=== PATIENT | female | born 1935 | race Caucasian/White ===

== ENCOUNTER → 2018-07-09 | Outpatient (CLI) | payer MEDICARE ==
[~2018-07-09] MED LIST: ALBUTEROL0.09 MG/A2 IH; B12,B-12,B 12500 MC1 PO; BAYER ASPIRIN R81 MG PO; BIOTIN1000 MCG PO; BONIVA150 MG PO; CALCIUM500 MG PO; CHOLESTEROL; CIPRO500 MG PO; COZAAR25 MG PO; COZAAR50 MG PO; FAMILY PHARMAC0.4 MG PO; LEVAQUIN750 MG PO; LIPITOR20 MG PO; LOPRESSOR25 MG PO; PLAVIX75 MG PO; PROTONIX40 MG PO; VESICARE10 MG PO; VITAMIN D31000 IU PO
[2018-07-09 15:39] LABS: BUN 32 mg/dl (7-24); CHLORIDE 100 mmol/L (98-107); CHOLESTEROL 109 mg/dL (<200); CREATININE 0.95 mg/dL (0.55-1.02); HDL CHOLESTEROL 51 mg/dl (40-60); LDL CHOLESTEROL 45 mg/dL (9-159); POTASSIUM 3.7 mmol/L (3.5-5.1); SODIUM 136 mmol/L (136-145); TRIGLYCERIDES 65 mg/dl (<150); VLDL CHOLESTEROL 13 mg/dL (6-40)
== END | disposition home or self-care (01) ==
LOC: LAB 14:39
PROVIDERS: Internal Medicine
DX: I10 Essential (primary) hypertension (principal); E78.5 Hyperlipidemia, unspecified; E87.1 Hypo-osmolality and hyponatremia; R53.83 Other fatigue

== ENCOUNTER → 2018-11-07 | Day surgery (SDC) | payer MEDICARE ==
[~2018-11-07] VITALS: Ht 162.5 cm; Wt 77.1 kg
[~2018-11-07] MED LIST changes: +AMLODIPINE BESYL5 MG PO; +ASPIRIN CHEWABL81 MG PO; +CHLORTHALIDONE25 MG PO; +COZAAR100 MG PO; -COZAAR25 MG PO; +COZAAR50 M1 PO; +GOOD NEIGHBOR P20 MG PO; +HYDR12.5C PO; +K-TAB ER8 MEQ PO; +OXYBUTYNIN CHLOR5 MG PO; +SENNA LAX8.6 M1 PO; +VITAMIN K100 MC1 PO
--- NOTE | ~2018-11-07 | O ---
[place], [place] OPERATIVE NOTE [id number] UNIT #: [id number] ROOM: DOCTOR: BORIS HI MD BIRTHDATE: [birth year] DOS: 11/07/2018 PREOPERATIVE DIAGNOSIS: Cataract, left eye. POSTOPERATIVE DIAGNOSIS: Cataract, left eye. OPERATION: Extracapsular cataract extraction by phacoemulsification with posterior chamber intraocular lens implantation, left eye. ANESTHESIA: Monitored standby. OPERATIVE FINDINGS AND PROCEDURE: 2% Xylocaine topical anesthetic gel was applied to the eye in the preop area. The patient was taken to the operating room and prepped and draped in the standard fashion for sterile intraocular surgery. A time out procedure was performed verifying correct patient, correct site and corrects lens with Isra Hi M.D. The operating microscope was swung into position and the lid speculum was inserted. Using a Beverly paracentesis blade, a paracentesis was made through clear cornea. Viscoelastic was used to fill the anterior chamber. Using a metal keratome a 2.4 mm self-sealing clear corneal cataract incision was made temporally at the limbus. Using a pre-bent 25 gauge cystotome needle, a standard continuous curvilinear capsulorrhexis was performed. The anterior capsule was removed with forceps. The lens nucleus was hydrodissected and phacoemulsified in the posterior chamber. Cortical material was removed with the irrigation aspiration hand piece and the posterior capsule was then polished with a curet under irrigation. The posterior chamber and capsular bag were filled with viscoelastic. A posterior chamber intraocular lens manufactured by: [employer], Model #[id number], and 21.0 diopters in strength were then inserted into the posterior chamber and within the capsular bag using the lens cartridge and injector system. Viscoelastic was removed using the irrigation aspiration handpiece. The anterior chamber was filled with balanced salt solution through the paracentesis. Both the paracentesis site and cataract incisions were hydrated with BSS and verified to be water-tight and self-sealing. Cefuroxime 1 mg/0.1 mL was injected into the anterior chamber through the paracentesis site. The incision checked to be water-tight using a Weck-Tara sponge. The integrity of the cataract wound and ocular tension were checked. Lid speculum and drapes were removed. The patient was transferred from the operating room to the recovery room in satisfactory condition. [place], [place] OPERATIVE NOTE NAME: ADRIANNE ROMAN UNIT #: [id number] ROOM: DOCTOR: BORIS HI MD BIRTHDATE: [birth year] BORIS HI MD CM:OPRECORD:OPERATIVE NOTE [id number] BORIS HI MD 11/07/18 1030 interface
[2018-11-07 08:49] VITALS: BP 176/61
[2018-11-07 09:30] VITALS: BP 152/53
[2018-11-07 09:45] VITALS: BP 141/49
[2018-11-07 10:00] VITALS: BP 150/51
== END | disposition home or self-care (01) ==
LOC: SDC 11-01 12:30
DX: H25.812 Combined forms of age-related cataract, left eye (principal); I25.10 Atherosclerotic heart disease of native coronary artery without angina pectoris; I10 Essential (primary) hypertension; E78.5 Hyperlipidemia, unspecified; Z88.1 Allergy status to other antibiotic agents; Z88.8 Allergy status to other drugs, medicaments and biological substances; Z91.048 Other nonmedicinal substance allergy status; Z98.890 Other specified postprocedural states; Z79.82 Long term (current) use of aspirin; Z79.899 Other long term (current) drug therapy; Z95.1 Presence of aortocoronary bypass graft

== ENCOUNTER 2019-03-04 19:17 | Inpatient (IN) | payer MEDICARE ==
[2019-03-04] VITALS (8 sets, daily range): BP systolic 180–222; BP diastolic 54–84
[~2019-03-04] VITALS: Ht 162.6 cm; Wt 78.3 kg
--- NOTE | ~2019-03-04 | EKG ---
[place], [place] ELECTROCARDIOGRAM REPORT NAME: ADRIANNE ROMAN UNIT #: [id number] ROOM: 407 DOCTOR: YASMANY DRAFT REPORT BIRTHDATE: [birth year] [facility] Test Date: 2019-03-05 Test Time: 01:40:03 Pat Name: ADRIANNE ROMAN Department: Room: 407 Gender: F Equipment Service Lead: : 1935 Requested By: AUTUMN ROTHMAN Order Number: [id number] Reading MD: Olivia Kay MD Measurements Intervals [place] Rate: 71 P: 72 MT: 212 QRS: 8 QRSD: 72 T: 39 QT: 418 QTc: 455 Interpretive Statements Sinus rhythm Borderline prolonged MT interval Electronically Signed On 03-10-2019 7:42:02 PDT by Olivia Kay MD CM:EKGRPT:ELECTROCARDIOGRAM REPORT [id number] AUTUMN BUCHANAN DRAFT REPORT AUTUMN ROTHMAN DO
--- NOTE | ~2019-03-04 | EKG ---
[place], [place] ELECTROCARDIOGRAM REPORT NAME: ADRIANNE ROMAN UNIT #: [id number] ROOM: 407 DOCTOR: YASMANY DRAFT REPORT BIRTHDATE: [birth year] [facility] Test Date: 2019-03-04 Test Time: 19:22:33 Pat Name: ADRIANNE ROMAN Department: Room: 407 Gender: F Chef Saucier: : 1935 Requested By: AUTUMN ROTHMAN Order Number: [id number] Reading MD: Olivia Kay MD Measurements Intervals [place] Rate: 87 P: 74 IN: 206 QRS: 40 QRSD: 73 T: 53 QT: 352 QTc: 424 Interpretive Statements Sinus rhythm Probable left atrial enlargement Baseline wander in lead(s) I,II,aVR,V1 Electronically Signed On 03-07-2019 8:01:30 PDT by Olivia Kay MD CM:EKGRPT:ELECTROCARDIOGRAM REPORT 21 0801 AUTUMN BUCHANAN DRAFT REPORT AUTUMN ROTHMAN DO
--- NOTE | ~2019-03-04 | ST ---
[place], [place] EXERCISE STRESS TEST REPORT NAME: ADRIANNE ROMAN [facility] #: [id number] UNIT #: [id number] ROOM: 407 DOCTOR: LONNIE MITCHELL MD BIRTHDATE: [birth year] DOS: 03/05/2019 LEXISCAN STRESS EKG REPORT REFERRING PHYSICIAN: Dr. Kramer. INDICATION: Chest pain, shortness of breath. The patient underwent standard protocol Lexiscan stress EKG. Baseline EKG is normal sinus, nonspecific ST-T wave changes. Heart rate of 65, blood pressure of 150/64. The patient's peak heart rate was 87 with a blood pressure of 150/60. The patient had no chest pain, no shortness of breath, no ischemic changes. SUMMARY OF FINDINGS: Unremarkable Lexiscan stress EKG. Please see separate report for perfusion scan imaging results. LONNIE MITCHELL MD CM:STRESS:EXERCISE STRESS TEST REPORT [id number] LONNIE MITCHELL MD
--- NOTE | ~2019-03-04 | EKG ---
[place], [place] ELECTROCARDIOGRAM REPORT NAME: ADRIANNE ROMAN UNIT #: [id number] ROOM: 407 DOCTOR: YASMANY DRAFT REPORT BIRTHDATE: [birth year] [facility] Test Date: 2019-03-04 Test Time: 23:15:01 Pat Name: ADRIANNE ROMAN Department: Room: 407 Gender: F Unitizer: : 1935 Requested By: AUTUMN ROTHMAN Order Number: [id number] Reading MD: Olivia Kay MD Measurements Intervals [place] Rate: 68 P: 77 IA: 198 QRS: 22 QRSD: 74 T: 30 QT: 413 QTc: 440 Interpretive Statements Sinus rhythm Baseline wander in lead(s) III,aVL,aVF Electronically Signed On 03-07-2019 8:01:43 PDT by Olivia Kay MD CM:EKGRPT:ELECTROCARDIOGRAM REPORT [id number] AUTUMN BUCHANAN DRAFT REPORT AUTUMN ROTHMAN DO
[~2019-03-04 19:17] MED LIST changes: -AMLODIPINE BESYL5 MG PO; -ASPIRIN CHEWABL81 MG PO; -CHLORTHALIDONE25 MG PO; -COZAAR50 M1 PO; -GOOD NEIGHBOR P20 MG PO; -HYDR12.5C PO; -K-TAB ER8 MEQ PO; -SENNA LAX8.6 M1 PO
[2019-03-04 19:34] LABS: BASO # 0.1 10*3/uL (0.0-0.1); BASO % 0.6 % (0.0-1.0); EOS # 0.2 10*3/uL (0.0-0.4); EOS % 2.4 % (1.0-4.0); HEMATOCRIT 38.7 % (37.0-47.0); HEMOGLOBIN 12.9 g/dl (12.0-16.0); LYMPH # 1.7 10*3/uL (1.3-4.4); LYMPH % 21.1 % (27.0-41.0); MEAN CELL VOLUME 89.6 fl (81.0-99.0); MEAN CORPUSCULAR HGB 29.9 pg (27.0-31.0); MEAN CORPUSCULAR HGB CONC 33.3 g/dl (33.0-37.0); MEAN PLATELET VOLUME 11.6 fl (9.6-12.3); MONO # 0.9 10*3/uL (0.1-1.0); MONO % 11.1 % (3.0-9.0); NEUT # 5.1 10*3/uL (2.3-7.9); NEUT % 64.5 % (47.0-73.0); PLATELET COUNT AUTOMATED 211 10*3/uL (130-400); RED BLOOD COUNT 4.32 10*6/uL (4.10-5.10); RED CELL DISTRI WIDTH 12.5 % (0-14.5); WHITE BLOOD COUNT 7.9 10*3/uL (4.8-10.8)
[2019-03-04 19:50] LABS: ALBUMIN 3.7 gm/dl (3.1-4.5); ALKALINE PHOSPHATASE 86 U/L (45-117); BUN 24 mg/dl (7-24); CHLORIDE 105 mmol/L (98-107); CREATININE 1.28 mg/dL (0.55-1.02); SGOT/AST 54 IU/L (3-35); SGPT/ALT 20 U/L (12-78); SODIUM 135 mmol/L (136-145); TOTAL PROTEIN 7.6 gm/dL (6.4-8.2)
[2019-03-04 19:51] LABS: TROPONIN I < 0.015 ng/ml (<0.045)
[2019-03-04 20:47] LABS: ACT PARTIAL THROMBO TIME 26.5 SECONDS (20.0-32.1)
[2019-03-04] MEDS ORDERED: COZAAR50 M1 PO (23:33)
[2019-03-04] MEDS ORDERED: CHLORTHALIDONE25 MG PO (23:38)
[2019-03-04] MEDS ORDERED: GOOD NEIGHBOR P20 MG PO (23:39)
[2019-03-04] MEDS ORDERED: LIPITOR20 MG PO (23:40)
[2019-03-04] MEDS ORDERED: ASPIRIN CHEWABL81 MG PO (23:41)
[2019-03-04] MEDS ORDERED: SENNA LAX8.6 M1 PO (23:42)
[2019-03-05] VITALS: BP 190/56
[2019-03-05 01:20] VITALS: BP 169/52
[2019-03-05 06:41] LABS: BASO % 0.6 % (0.0-1.0); EOS # 0.2 10*3/uL (0.0-0.4); HEMATOCRIT 36.4 % (37.0-47.0); HEMOGLOBIN 11.9 g/dl (12.0-16.0); LYMPH # 1.5 10*3/uL (1.3-4.4); LYMPH % 21.8 % (27.0-41.0); MEAN CELL VOLUME 90.5 fl (81.0-99.0); MEAN CORPUSCULAR HGB 29.6 pg (27.0-31.0); MEAN CORPUSCULAR HGB CONC 32.7 g/dl (33.0-37.0); MEAN PLATELET VOLUME 11.4 fl (9.6-12.3); MONO # 0.9 10*3/uL (0.1-1.0); MONO % 12.3 % (3.0-9.0); NEUT # 4.4 10*3/uL (2.3-7.9); NEUT % 61.9 % (47.0-73.0); PLATELET COUNT AUTOMATED 164 10*3/uL (130-400); RED BLOOD COUNT 4.02 10*6/uL (4.10-5.10); RED CELL DISTRI WIDTH 12.6 % (0-14.5); WHITE BLOOD COUNT 7.1 10*3/uL (4.8-10.8)
[2019-03-05 07:19] LABS: ALBUMIN 3.6 gm/dl (3.1-4.5); CREATININE 1.1 mg/dL (0.55-1.02); PHOSPHOROUS 3.9 mg/dL (2.5-4.9)
[2019-03-05 07:26] LABS: FREE T4 1.24 ng/dl (0.76-1.46); THYROID STIM HORMONE (HS) 2.87 uIU/ml (0.358-4.75); TOTAL PROTEIN 6.7 gm/dL (6.4-8.2)
[2019-03-05 07:41] LABS: POTASSIUM 3.8 mmol/L (3.5-5.1)
[2019-03-05 08:00] VITALS: BP 176/52
[2019-03-05 15:14] VITALS: BP 189/51
[2019-03-05 15:48] VITALS: BP 168/58
[2019-03-05 20:00] VITALS: BP 167/55
[2019-03-06] VITALS: BP 160/66; BP 172/64
[2019-03-06 08:00] VITALS: BP 162/70
[2019-03-06 12:00] VITALS: BP 139/42
[2019-03-06] MEDS ORDERED: K-TAB ER8 MEQ PO (13:00)
[2019-03-06] MEDS ORDERED: HYDR12.5C PO (13:00)
[2019-03-06] MEDS ORDERED: AMLODIPINE BESYL5 MG PO (13:00)
== END 2019-03-06 14:00 | disposition home or self-care (01) | DRG 193 ==
LOC: ED 19:17 → 4E 21:53
PROVIDERS: Internal Medicine; Student in an Organized Health Care Education/Training Program; ADMIT Internal Medicine
PROC: 3E073KZ Introduction of Other Diagnostic Substance into Coronary Artery, Percutaneous Approach (ICD-10-PCS; principal; 2019-03-05)
PROC: 4A02XM4 Measurement of Cardiac Total Activity, External Approach (ICD-10-PCS; principal; 2019-03-05)
DX: R09.1 Pleurisy (principal); N17.0 Acute kidney failure with tubular necrosis; I16.1 Hypertensive emergency; E87.1 Hypo-osmolality and hyponatremia; F41.9 Anxiety disorder, unspecified; K21.9 Gastro-esophageal reflux disease without esophagitis; I25.10 Atherosclerotic heart disease of native coronary artery without angina pectoris; E78.5 Hyperlipidemia, unspecified; I10 Essential (primary) hypertension; R74.0 Nonspecific elevation of levels of transaminase and lactic acid dehydrogenase [LDH]; Z95.1 Presence of aortocoronary bypass graft; Z85.3 Personal history of malignant neoplasm of breast; Z92.3 Personal history of irradiation; Z80.8 Family history of malignant neoplasm of other organs or systems; Z88.8 Allergy status to other drugs, medicaments and biological substances; Z79.82 Long term (current) use of aspirin; Z79.899 Other long term (current) drug therapy; Z98.42 Cataract extraction status, left eye

== ENCOUNTER → 2019-04-02 | Outpatient (CLI) | payer MEDICARE ==
[~2019-04-02] MED LIST changes: +AMLODIPINE BESYL5 MG PO; +ASPIRIN CHEWABL81 MG PO; +CHLORTHALIDONE25 MG PO; +COZAAR50 M1 PO; +GOOD NEIGHBOR P20 MG PO; +HYDR12.5C PO; +K-TAB ER8 MEQ PO; +SENNA LAX8.6 M1 PO
[2019-04-02 10:33] LABS: HEMOGLOBIN 12.8 g/dl (12.0-16.0); MEAN CELL VOLUME 87.4 fl (81.0-99.0); MEAN CORPUSCULAR HGB 29.4 pg (27.0-31.0); MEAN CORPUSCULAR HGB CONC 33.7 g/dl (33.0-37.0); RED BLOOD COUNT 4.35 10*6/uL (4.10-5.10); RED CELL DISTRI WIDTH 12.5 % (0-14.5)
[2019-04-02 11:01] LABS: ALBUMIN 3.7 gm/dl (3.1-4.5); ALKALINE PHOSPHATASE 74 U/L (45-117); BUN 21 mg/dl (7-24); CHLORIDE 102 mmol/L (98-107); CHOLESTEROL 101 mg/dL (<200); CREATININE 1.03 mg/dL (0.55-1.02); HDL CHOLESTEROL 52 mg/dl (40-60); LDL CHOLESTEROL 37 mg/dL (9-159); POTASSIUM 3.6 mmol/L (3.5-5.1); SGOT/AST 15 IU/L (3-35); SGPT/ALT 19 U/L (12-78); SODIUM 136 mmol/L (136-145); TOTAL PROTEIN 7.4 gm/dL (6.4-8.2); TRIGLYCERIDES 61 mg/dl (<150); VLDL CHOLESTEROL 12 mg/dL (6-40)
== END | disposition home or self-care (01) ==
LOC: LAB 10:00
PROVIDERS: Nurse Practitioner Family
DX: I10 Essential (primary) hypertension (principal); E78.00 Pure hypercholesterolemia, unspecified; E87.5 Hyperkalemia; E55.9 Vitamin D deficiency, unspecified

== ENCOUNTER → 2019-05-24 | Outpatient (CLI) | payer MEDICARE ==
[2019-05-24 15:59] LABS: HEMATOCRIT 37.2 % (37.0-47.0); HEMOGLOBIN 12.4 g/dl (12.0-16.0); MEAN CELL VOLUME 87.3 fl (81.0-99.0); MEAN CORPUSCULAR HGB 29.1 pg (27.0-31.0); MEAN CORPUSCULAR HGB CONC 33.3 g/dl (33.0-37.0); MEAN PLATELET VOLUME 10.2 fl (9.6-12.3); RED BLOOD COUNT 4.26 10*6/uL (4.10-5.10); RED CELL DISTRI WIDTH 12.5 % (0-14.5); WHITE BLOOD COUNT 7.4 10*3/uL (4.8-10.8)
[2019-05-24 16:24] LABS: ALBUMIN 3.9 gm/dl (3.1-4.5); ALKALINE PHOSPHATASE 74 U/L (45-117); BUN 21 mg/dl (7-24); CHLORIDE 97 mmol/L (98-107); CREATININE 1.01 mg/dL (0.55-1.02); POTASSIUM 3.8 mmol/L (3.5-5.1); SGOT/AST 21 IU/L (3-35); SGPT/ALT 28 U/L (12-78); SODIUM 131 mmol/L (136-145); TOTAL PROTEIN 7.4 gm/dL (6.4-8.2)
== END | disposition home or self-care (01) ==
LOC: LAB 15:32
PROVIDERS: Family Medicine
DX: R06.02 Shortness of breath (principal); I10 Essential (primary) hypertension; F41.1 Generalized anxiety disorder; E74.00 Glycogen storage disease, unspecified; F41.9 Anxiety disorder, unspecified; L65.9 Nonscarring hair loss, unspecified; R60.0 Localized edema

== ENCOUNTER → 2019-07-29 | Outpatient (CLI) | payer OTHER ==
[2019-07-29 11:43] LABS: HEMATOCRIT 38.1 % (37.0-47.0); HEMOGLOBIN 12.7 g/dl (12.0-16.0); MEAN CORPUSCULAR HGB 29.3 pg (27.0-31.0); MEAN CORPUSCULAR HGB CONC 33.3 g/dl (33.0-37.0); MEAN PLATELET VOLUME 10.9 fl (9.6-12.3); RED BLOOD COUNT 4.33 10*6/uL (4.10-5.10); RED CELL DISTRI WIDTH 12.8 % (0-14.5); WHITE BLOOD COUNT 7.1 10*3/uL (4.8-10.8)
[2019-07-29 12:11] LABS: ALBUMIN 4.1 gm/dl (3.1-4.5); CREATININE 1.13 mg/dL (0.55-1.02); FREE T4 1.05 ng/dl (0.76-1.46)
[2019-07-29 12:16] LABS: THYROID STIM HORMONE (HS) 1.86 uIU/ml (0.358-4.75); TOTAL PROTEIN 7.4 gm/dL (6.4-8.2)
== END | disposition home or self-care (01) ==
LOC: LAB 11:08
PROVIDERS: Family Medicine
DX: I10 Essential (primary) hypertension (principal); E78.00 Pure hypercholesterolemia, unspecified; E55.9 Vitamin D deficiency, unspecified; Z79.899 Other long term (current) drug therapy; R53.83 Other fatigue

== ENCOUNTER → 2020-03-30 | Outpatient (CLI) | payer MEDICARE ==
[2020-03-30 10:45] LABS: HEMATOCRIT 36.7 % (37.0-47.0); MEAN CELL VOLUME 87.6 fl (81.0-99.0); MEAN CORPUSCULAR HGB 28.9 pg (27.0-31.0); MEAN PLATELET VOLUME 11.1 fl (9.6-12.3); RED BLOOD COUNT 4.19 10*6/uL (4.10-5.10); WHITE BLOOD COUNT 5.7 10*3/uL (4.8-10.8)
[2020-03-30 11:14] LABS: ALBUMIN 3.8 gm/dl (3.1-4.5); CREATININE 1.17 mg/dL (0.55-1.02); POTASSIUM 3.9 mmol/L (3.5-5.1); TOTAL PROTEIN 7.3 gm/dL (6.4-8.2)
== END | disposition home or self-care (01) ==
LOC: LAB 10:10
PROVIDERS: ATTEND Family Medicine
DX: I10 Essential (primary) hypertension (principal); E55.9 Vitamin D deficiency, unspecified

== ENCOUNTER → 2020-04-10 | Outpatient (CLI) | payer MEDICARE | END | disposition home or self-care (01) | LOC: US 13:00 | PROVIDERS: ATTEND Nurse Practitioner Family | DX: I65.23 Occlusion and stenosis of bilateral carotid arteries (principal) ==

== ENCOUNTER → 2020-04-27 | Outpatient (CLI) | payer MEDICARE | END | disposition home or self-care (01) | LOC: RAD 15:34 | PROVIDERS: ATTEND Family Medicine | DX: J44.9 Chronic obstructive pulmonary disease, unspecified (principal); Z95.1 Presence of aortocoronary bypass graft ==

== ENCOUNTER → 2020-09-30 | Outpatient (CLI) | payer MEDICARE | END | disposition home or self-care (01) | LOC: RAD 10:52 | PROVIDERS: ATTEND Family Medicine | DX: J43.9 Emphysema, unspecified (principal); J98.11 Atelectasis; J98.6 Disorders of diaphragm; Z95.1 Presence of aortocoronary bypass graft ==

== ENCOUNTER → 2020-10-19 | Outpatient (CLI) | payer MEDICARE ==
[2020-10-19 08:48] LABS: BASO % 0.6 % (0.0-1.0); EOS # 0.1 10*3/uL (0.0-0.4); HEMATOCRIT 39.6 % (37.0-47.0); LYMPH # 2.2 10*3/uL (1.3-4.4); LYMPH % 34.6 % (27.0-41.0); MEAN CELL VOLUME 89.8 fl (81.0-99.0); MEAN CORPUSCULAR HGB 29.3 pg (27.0-31.0); MEAN CORPUSCULAR HGB CONC 32.6 g/dl (33.0-37.0); MEAN PLATELET VOLUME 10.9 fl (9.6-12.3); MONO # 0.9 10*3/uL (0.1-1.0); NEUT # 3.1 10*3/uL (2.3-7.9); NEUT % 48.5 % (47.0-73.0); PLATELET COUNT AUTOMATED 222 10*3/uL (130-400); RED BLOOD COUNT 4.41 10*6/uL (4.10-5.10); RED CELL DISTRI WIDTH 12.9 % (0-14.5); WHITE BLOOD COUNT 6.5 10*3/uL (4.8-10.8)
[2020-10-19 09:28] LABS: CREATININE 1.36 mg/dL (0.55-1.02); TOTAL PROTEIN 7.9 gm/dL (6.4-8.2)
== END | disposition home or self-care (01) ==
LOC: LAB 08:12
PROVIDERS: ATTEND Family Medicine
DX: E78.00 Pure hypercholesterolemia, unspecified (principal); E55.9 Vitamin D deficiency, unspecified; R53.83 Other fatigue; Z79.899 Other long term (current) drug therapy

== ENCOUNTER → 2021-02-09 | Outpatient (CLI) | payer MEDICARE ==
[~2021-02-09] MED LIST changes: +CARDIZEM CD240 M1 PO; +DOXYCYCLINE100 M3 PO; +ELIQUIS5 M1 PO; +Ipratropium Brom3 ML INH; +LASIX40 MG PO; -OXYBUTYNIN CHLOR5 MG PO; +OXYBUTYNIN5 MG PO
[2021-02-09 13:38] LABS: ALBUMIN 3.9 gm/dl (3.1-4.5); CREATININE 1.11 mg/dL (0.55-1.02); POTASSIUM 4.3 mmol/L (3.5-5.1)
[2021-02-09 13:41] LABS: TOTAL PROTEIN 7.6 gm/dL (6.4-8.2)
== END | disposition home or self-care (01) ==
LOC: LAB 12:35
PROVIDERS: ATTEND Family Medicine
DX: I10 Essential (primary) hypertension (principal); E78.00 Pure hypercholesterolemia, unspecified; N32.81 Overactive bladder

== ENCOUNTER → 2021-04-14 | Outpatient (CLI) | payer MEDICARE | END | disposition home or self-care (01) | LOC: CARD 09:28 | PROVIDERS: ATTEND Family Medicine | DX: R00.2 Palpitations (principal) ==

== ENCOUNTER → 2021-05-03 | Outpatient (CLI) | payer MEDICARE ==
[2021-05-03 15:00] LABS: ALBUMIN 3.8 gm/dl (3.1-4.5); CREATININE 1.2 mg/dL (0.55-1.02); POTASSIUM 4.6 mmol/L (3.5-5.1); TOTAL PROTEIN 7.6 gm/dL (6.4-8.2)
== END | disposition home or self-care (01) ==
LOC: LAB 14:22
PROVIDERS: ATTEND Family Medicine
DX: J98.11 Atelectasis (principal); E78.00 Pure hypercholesterolemia, unspecified

== ENCOUNTER → 2021-06-07 | Outpatient (CLI) | payer MEDICARE | END | disposition home or self-care (01) | LOC: US 06-04 15:00 | PROVIDERS: ATTEND Family Medicine | DX: I65.23 Occlusion and stenosis of bilateral carotid arteries (principal); R09.89 Other specified symptoms and signs involving the circulatory and respiratory systems ==

== ENCOUNTER → 2021-12-28 | Outpatient (CLI) | payer MEDICARE ==
[2021-12-28 09:10] LABS: HEMATOCRIT 38.3 % (37.0-47.0); MEAN CELL VOLUME 91.6 fl (81.0-99.0); MEAN CORPUSCULAR HGB 29.9 pg (27.0-31.0); MEAN CORPUSCULAR HGB CONC 32.6 g/dl (33.0-37.0); MEAN PLATELET VOLUME 11.4 fl (9.6-12.3); RED BLOOD COUNT 4.18 10*6/uL (4.10-5.10); RED CELL DISTRI WIDTH 13.1 % (0-14.5); WHITE BLOOD COUNT 6.9 10*3/uL (4.8-10.8)
[2021-12-28 09:26] LABS: CREATININE 1.1 mg/dL (0.55-1.02); POTASSIUM 4.1 mmol/L (3.5-5.1); TOTAL PROTEIN 7.4 gm/dL (6.4-8.2)
[2021-12-28 10:14] LABS: VITAMIN D, 25-HYDROXY 93.5 ng/mL (30-100)
== END | disposition home or self-care (01) ==
LOC: LAB 08:45
PROVIDERS: ATTEND Family Medicine
DX: I10 Essential (primary) hypertension (principal); E78.00 Pure hypercholesterolemia, unspecified; R53.83 Other fatigue; E55.9 Vitamin D deficiency, unspecified; N32.81 Overactive bladder

== ENCOUNTER → 2022-04-06 | Outpatient (CLI) | payer MEDICARE ==
[~2022-04-06] MED LIST changes: +CALCIUM 600 MG1 EA10 PO; +POTASSIUM CHLO20 ME4 PO
== END | disposition home or self-care (01) ==
LOC: MAMMO 08:35
PROVIDERS: ATTEND Family Medicine
DX: R92.1 Mammographic calcification found on diagnostic imaging of breast (principal); N64.9 Disorder of breast, unspecified

== ENCOUNTER → 2022-04-11 | Day surgery (SDC) | payer MEDICARE ==
[~2022-04-11] VITALS: Ht 162.5 cm; Wt 74.8 kg
[2022-04-11 07:30] VITALS: BP 181/56
[2022-04-11 09:00] VITALS: BP 144/43
[2022-04-11 09:15] VITALS: BP 156/47
[2022-04-11 09:27] VITALS: BP 158/45
== END | disposition home or self-care (01) ==
LOC: US 04-06 09:30 → SDC 04-06 09:30
PROVIDERS: ATTEND Surgery
DX: Z12.11 Encounter for screening for malignant neoplasm of colon (principal); K57.30 Diverticulosis of large intestine without perforation or abscess without bleeding; K64.8 Other hemorrhoids; I10 Essential (primary) hypertension; I25.10 Atherosclerotic heart disease of native coronary artery without angina pectoris; E78.5 Hyperlipidemia, unspecified; Z98.890 Other specified postprocedural states; Z85.3 Personal history of malignant neoplasm of breast; Z98.42 Cataract extraction status, left eye; Z98.41 Cataract extraction status, right eye; Z87.891 Personal history of nicotine dependence; Z88.1 Allergy status to other antibiotic agents; Z79.899 Other long term (current) drug therapy
CPT/HCPCS: 00812; G0121

== ENCOUNTER → 2022-04-18 | Outpatient (CLI) | payer MEDICARE | END | disposition home or self-care (01) | LOC: LAB 14:31 | PROVIDERS: ATTEND Family Medicine | DX: I10 Essential (primary) hypertension (principal) ==

== ENCOUNTER → 2022-05-12 | Outpatient (CLI) | payer MEDICARE ==
[2022-05-12 11:20] LABS: HEMATOCRIT 38.9 % (37.0-47.0); MEAN CELL VOLUME 91.1 fl (81.0-99.0); MEAN CORPUSCULAR HGB 29.7 pg (27.0-31.0); MEAN CORPUSCULAR HGB CONC 32.6 g/dl (33.0-37.0); MEAN PLATELET VOLUME 12.4 fl (9.6-12.3); RED BLOOD COUNT 4.27 10*6/uL (4.10-5.10); RED CELL DISTRI WIDTH 13.2 % (0-14.5); WHITE BLOOD COUNT 6.4 10*3/uL (4.8-10.8)
[2022-05-12 11:48] LABS: CREATININE 1.11 mg/dL (0.55-1.02); POTASSIUM 3.9 mmol/L (3.5-5.1); TOTAL PROTEIN 7.4 gm/dL (6.4-8.2)
[2022-05-12 13:00] LABS: VITAMIN D, 25-HYDROXY 80.6 ng/mL (30-100)
== END | disposition home or self-care (01) ==
LOC: LAB 10:15
PROVIDERS: ATTEND Family Medicine
DX: E78.00 Pure hypercholesterolemia, unspecified (principal); I10 Essential (primary) hypertension; E55.9 Vitamin D deficiency, unspecified; M19.90 Unspecified osteoarthritis, unspecified site; R53.83 Other fatigue

== ENCOUNTER → 2022-10-10 | Outpatient (CLI) | payer OTHER ==
[~2022-10-10] MED LIST changes: +'CLONIDINE0.1 MG PO; +CEFUROXIME AXE250 MG PO; +HYDRALAZINE HYD50 MG PO; +PREDNISONE5 MG PO; +PULMICORT RESP0.5 M1 INH; +XARE15TA PO
== END | disposition home or self-care (01) ==
LOC: RAD 15:09
PROVIDERS: ATTEND Family Medicine
DX: J98.11 Atelectasis (principal); R06.02 Shortness of breath

== ENCOUNTER → 2023-04-12 | Outpatient (CLI) | payer OTHER ==
[~2023-04-12] MED LIST changes: +ELIQUIS2.5 M1 PO; +FUROSEMIDE40 MG PO; +LIPITOR10 MG PO; +METOPROLOL SUCC25 M2 PO
== END | disposition home or self-care (01) ==
LOC: RAD 14:02
PROVIDERS: ATTEND Family Medicine
DX: J44.9 Chronic obstructive pulmonary disease, unspecified (principal); J98.4 Other disorders of lung

== ENCOUNTER 2023-08-25 04:56 | Inpatient (IN) | payer OTHER ==
[~2023-08-25] VITALS: Ht 162.6 cm; Wt 78.0 kg
[2023-08-25] VITALS (9 sets, daily range): BP systolic 140–199; BP diastolic 50–72
[~2023-08-25 04:56] MED LIST changes: +ACETAMINOPHEN325 M2 PO; +ALDACTONE25 MG PO; +ALPRAZOLAM0.25 M2 PO; +AMLODIPINE BESY10 MG PO; +AMOX-CLAV 875-1 EACH PO; +BUMETANIDE2 MG PO; +BUSPAR5 MG PO; +CLONIDINE HCL0.2 MG PO; +HYDR25T PO; +HYDROCHLOROTHIA25 M1 PO; +LABETALOL HCL300 MG PO; +LOSARTAN POTAS100 M1 PO; +LOSARTAN POTASS50 M1 PO; +MACRODANTIN100 M1 PO; +MAGIC MOUTHWASH PO; +MINIPRESS1 M1 PO; +NORMODYNE,TRAN100 MG PO; +NORMODYNE,TRAN200 MG PO; +PANTOPRAZOLE SO40 MG PO; +PHARMASSURE FO0.4 MG PO; +SENNA8.6 MG PO; +TOPROL XL25 MG PO; +VESICARE5 MG PO
[2023-08-25 05:34] LABS: BILIRUBIN Negative (Negative); BLOOD Negative (Negative); CLARITY Clear (Clear); COLOR Yellow (Yellow); GLUCOSE Negative (Negative); KETONE Negative (Negative); LEUKO ESTERASE Negative (Negative); NITRITE Negative (Negative); PH 5.5 (4.5-8.0)
[2023-08-25 05:43] LABS: POTASSIUM 4.7 mmol/L (3.4-5.1)
[2023-08-25 05:45] LABS: BACTERIA 1+
[2023-08-25 05:53] LABS: BASO % 0.2 % (0.0-1.0); LYMPH # 0.7 10*3/uL (1.3-4.4)
[2023-08-25 06:04] LABS: EOS % 0.7 % (1.0-4.0); HEMATOCRIT 24.3 % (37.0-47.0); MEAN CELL VOLUME 93.1 fl (81.0-99.0); MEAN CORPUSCULAR HGB 28.7 pg (27.0-31.0); MEAN CORPUSCULAR HGB CONC 30.9 g/dl (33.0-37.0); MEAN PLATELET VOLUME 12.4 fl (9.6-12.3); MONO # 0.7 10*3/uL (0.1-1.0); MONO % 16.4 % (3.0-9.0); NEUT # 2.8 10*3/uL (2.3-7.9); NEUT % 66.2 % (47.0-73.0); PLATELET COUNT AUTOMATED 118 10*3/uL (130-400); RED BLOOD COUNT 2.61 10*6/uL (4.10-5.10); RED CELL DISTRI WIDTH 14.4 % (0-14.5); WHITE BLOOD COUNT 4.3 10*3/uL (4.8-10.8)
[2023-08-25] MEDS ORDERED: FUROSEMIDE 40 MG/4 ML VIAL IV ONE (06:05)
[2023-08-25] MEDS ORDERED: Ceftriaxone Sodium 1 GM/10 ML SYR IV ONE (06:05)
[2023-08-25] MEDS ORDERED: Doxycycline Hyclate 100 MG in SODIUM CHLORIDE 0.9% 250 ML IV ONE (06:05)
[2023-08-25] MEDS ORDERED: HYDROXYZINE HCL25 MG PO (06:13)
[2023-08-25] MEDS ORDERED: SACCHAROMYCES250 MG PO (06:14)
[2023-08-25] MEDS ORDERED: FLAVOXATE HCL100 MG PO (06:15)
[2023-08-25] MEDS ORDERED: AMOXICILLIN875 MG PO (06:15)
[2023-08-25] MEDS ORDERED: MIRTAZAPINE15 M1 PO (06:16)
[2023-08-25] MEDS ORDERED: SYMB160 INH (06:16)
[2023-08-25] MEDS ORDERED: MILK OF MA400 MG/53 PO (06:17)
[2023-08-25] MEDS ORDERED: DOCUSATE SOD100 MG PO (06:18)
[2023-08-25] MEDS ORDERED: hydrALAZINE hydrochloride 50 MG TAB PO SCH ×2 (10:00→22:00)
[2023-08-25] MEDS ORDERED: Labetalol Hydrochloride 200 MG TAB PO SCH ×2 (10:00→14:00)
[2023-08-25] MEDS ORDERED: hydrOXYzine pamoate 25 MG CAP PO ONE (11:05)
[2023-08-25] MEDS ORDERED: hydrOXYzine pamoate 25 MG CAP PO PRN (11:45)
[2023-08-25] MEDS ORDERED: hydrOXYzine pamoate 25 MG CAP PO SCH (12:00)
[2023-08-25] MEDS ORDERED: Albuterol Sulfate 2.5 MG/3 ML VIAL NEB SCH (12:05)
[2023-08-25] MEDS ORDERED: BUDESONIDE 0.5 MG AMP NEB SCH (12:05)
[2023-08-25] MEDS ORDERED: methylPREDNISolone sod succ 40 MG VIAL IV SCH (14:00)
[2023-08-25] MEDS ORDERED: ACETAMINOPHEN 500 MG TAB PO SCH (14:00)
[2023-08-25] MEDS ORDERED: busPIRone Hydrochloride 10 MG TAB PO SCH (14:00)
[2023-08-25] MEDS ORDERED: IPRATROPIUM BROMIDE 0.5 MG/2.5 ML AMP NEB SCH (15:45)
[2023-08-25] MEDS ORDERED: IPRATROPIUM BROMIDE 12.9 GM INHALER INH SCH (18:00)
[2023-08-25] MEDS ORDERED: DOCUSATE SODIUM 100 MG CAP PO SCH (18:00)
[2023-08-25] MEDS ORDERED: FUROSEMIDE 40 MG/4 ML VIAL IV SCH (18:40)
[2023-08-25] MEDS ORDERED: Oxybutynin Chloride 5 MG TAB PO SCH (22:00)
[2023-08-25] MEDS ORDERED: Mirtazapine 15 MG TAB PO SCH (22:00)
[2023-08-25] MEDS ORDERED: Budesonide/Formoterol Fumarate 160/4.5 inhaler INH SCH (22:00)
[2023-08-25] MEDS ORDERED: APIXABAN 5 MG TAB PO SCH (22:00)
[2023-08-26] VITALS: BP 150/52
[2023-08-26] MEDS ORDERED: Pantoprazole Sodium 40 MG TAB PO SCH (06:00)
[2023-08-26 06:07] LABS: BASO % 0.4 % (0.0-1.0); HEMATOCRIT 26.1 % (37.0-47.0); LYMPH # 0.5 10*3/uL (1.3-4.4); LYMPH % 17.2 % (27.0-41.0); MEAN CELL VOLUME 93.2 fl (81.0-99.0); MEAN CORPUSCULAR HGB 28.6 pg (27.0-31.0); MEAN CORPUSCULAR HGB CONC 30.7 g/dl (33.0-37.0); MEAN PLATELET VOLUME 12.9 fl (9.6-12.3); MONO # 0.3 10*3/uL (0.1-1.0); MONO % 10.5 % (3.0-9.0); NEUT # 1.9 10*3/uL (2.3-7.9); NEUT % 71.5 % (47.0-73.0); PLATELET COUNT AUTOMATED 141 10*3/uL (130-400); RED CELL DISTRI WIDTH 14.1 % (0-14.5); WHITE BLOOD COUNT 2.7 10*3/uL (4.8-10.8)
[2023-08-26 06:58] LABS: ALKALINE PHOSPHATASE 57 U/L (46-116); BUN 25 mg/dl (9-23); CHLORIDE 94 mmol/L (98-107); POTASSIUM 4.6 mmol/L (3.4-5.1); TOTAL PROTEIN 7.1 gm/dL (6.0-8.0)
[2023-08-26 07:01] LABS: SGPT/ALT < 7 U/L (5-49)
[2023-08-26 08:00] VITALS: BP 176/58
[2023-08-26] MEDS ORDERED: Losartan Potassium 50 MG TAB PO SCH (10:00)
[2023-08-26] MEDS ORDERED: BUMETANIDE 1 MG TAB PO SCH (10:00)
[2023-08-26 12:00] VITALS: BP 147/49
[2023-08-26] MEDS ORDERED: IPRATROPIUM BROMIDE 0.5 MG/2.5 ML AMP NEB ONE (15:08)
[2023-08-26 16:00] VITALS: BP 155/51
[2023-08-26] MEDS ORDERED: CARBAMIDE PEROXIDE OTIC 15 ML BOTTLE OT SCH (18:00)
[2023-08-26 20:00] VITALS: BP 142/56
[2023-08-27] VITALS: BP 145/58
[2023-08-27 05:20] VITALS: BP 156/50
[2023-08-27 07:11] LABS: ALKALINE PHOSPHATASE 54 U/L (46-116); BUN 31 mg/dl (9-23); CHLORIDE 93 mmol/L (98-107); POTASSIUM 4.2 mmol/L (3.4-5.1); TOTAL PROTEIN 6.8 gm/dL (6.0-8.0)
[2023-08-27 07:12] LABS: SGPT/ALT < 7 U/L (5-49)
[2023-08-27 08:00] VITALS: BP 162/48
[2023-08-27 12:00] VITALS: BP 148/51
[2023-08-27] MEDS ORDERED: amLODIPine besylate 5 MG TAB PO SCH (15:30)
[2023-08-27] MEDS ORDERED: FUROSEMIDE 20 MG/2 ML VIAL IV ONE (15:35)
[2023-08-27 16:00] VITALS: BP 188/56
[2023-08-27 20:00] VITALS: BP 160/50
[2023-08-27] MEDS ORDERED: Metoprolol Tartrate 25 MG TAB PO SCH (22:00)
[2023-08-28] VITALS: BP 154/52
[2023-08-28] MEDS ORDERED: FUROSEMIDE 40 MG/4 ML VIAL IV SCH (06:00)
[2023-08-28 06:15] LABS: POTASSIUM 4.2 mmol/L (3.4-5.1)
[2023-08-28 08:00] VITALS: BP 180/46
[2023-08-28] MEDS ORDERED: Losartan Potassium 25 MG TAB PO SCH (10:00)
[2023-08-28 12:00] VITALS: BP 151/37
[2023-08-28] MEDS ORDERED: SPIRONOLACTONE 25 MG TAB PO SCH (14:00)
[2023-08-28 16:00] VITALS: BP 182/45
[2023-08-28 17:01] VITALS: BP 146/52
[2023-08-28] MEDS ORDERED: methylPREDNISolone sod succ 40 MG VIAL IV SCH (18:00)
[2023-08-28 20:00] VITALS: BP 193/48
[2023-08-28] MEDS ORDERED: APIXABAN 5 MG TAB PO SCH (22:00)
[2023-08-29] VITALS: BP 160/67
[2023-08-29] MEDS ORDERED: HEEL PROTECTOR DEVICE ONE (02:47)
[2023-08-29 06:33] LABS: BASO % 0.2 % (0.0-1.0); HEMATOCRIT 29.4 % (37.0-47.0); LYMPH # 1.4 10*3/uL (1.3-4.4); LYMPH % 23.8 % (27.0-41.0); MEAN CELL VOLUME 93.3 fl (81.0-99.0); MEAN CORPUSCULAR HGB 27.9 pg (27.0-31.0); MEAN CORPUSCULAR HGB CONC 29.9 g/dl (33.0-37.0); MEAN PLATELET VOLUME 11.9 fl (9.6-12.3); MONO # 0.9 10*3/uL (0.1-1.0); NEUT # 3.4 10*3/uL (2.3-7.9); NEUT % 59.5 % (47.0-73.0); PLATELET COUNT AUTOMATED 166 10*3/uL (130-400); RED BLOOD COUNT 3.15 10*6/uL (4.10-5.10); WHITE BLOOD COUNT 5.8 10*3/uL (4.8-10.8)
[2023-08-29 07:10] LABS: ALKALINE PHOSPHATASE 62 U/L (46-116); BUN 27 mg/dl (9-23); CHLORIDE 92 mmol/L (98-107); POTASSIUM 3.8 mmol/L (3.4-5.1); SGPT/ALT 26 U/L (5-49); TOTAL PROTEIN 7.3 gm/dL (6.0-8.0)
[2023-08-29 08:00] VITALS: BP 180/40
[2023-08-29] MEDS ORDERED: METOLAZONE 2.5 MG TAB PO SCH (09:30)
[2023-08-29] MEDS ORDERED: acetaZOLAMIDE 250 MG TAB PO SCH (10:00)
[2023-08-29] MEDS ORDERED: Losartan Potassium 50 MG TAB PO SCH (10:00)
[2023-08-29 12:00] VITALS: BP 160/38
[2023-08-29 16:00] VITALS: BP 154/57
[2023-08-29 20:00] VITALS: BP 198/57
[2023-08-30] VITALS: BP 152/83
[2023-08-30 06:35] LABS: BASO % 0.1 % (0.0-1.0); HEMATOCRIT 30.3 % (37.0-47.0); LYMPH # 1.8 10*3/uL (1.3-4.4); LYMPH % 24.2 % (27.0-41.0); MEAN CELL VOLUME 92.7 fl (81.0-99.0); MEAN CORPUSCULAR HGB 28.7 pg (27.0-31.0); MONO # 0.8 10*3/uL (0.1-1.0); MONO % 10.5 % (3.0-9.0); NEUT # 4.8 10*3/uL (2.3-7.9); NEUT % 64.7 % (47.0-73.0); PLATELET COUNT AUTOMATED 196 10*3/uL (130-400); POTASSIUM 3.4 mmol/L (3.4-5.1); RED BLOOD COUNT 3.27 10*6/uL (4.10-5.10); TOTAL PROTEIN 7.1 gm/dL (6.0-8.0); WHITE BLOOD COUNT 7.4 10*3/uL (4.8-10.8)
[2023-08-30 08:00] VITALS: BP 163/68
[2023-08-30] MEDS ORDERED: FUROSEMIDE 40 MG/4 ML VIAL IV SCH (09:59)
[2023-08-30] MEDS ORDERED: METOLAZONE 2.5 MG TAB PO SCH (09:59)
[2023-08-30 12:00] VITALS: BP 160/55
[2023-08-30 16:00] VITALS: BP 152/53
[2023-08-30] MEDS ORDERED: SODIUM CHLORIDE 1 GM TAB PO SCH (18:00)
[2023-08-30 20:00] VITALS: BP 127/51
[2023-08-31] VITALS: BP 143/50
[2023-08-31 06:41] LABS: BASO % 0.1 % (0.0-1.0); EOS % 0.2 % (1.0-4.0); HEMATOCRIT 33.1 % (37.0-47.0); LYMPH # 2.8 10*3/uL (1.3-4.4); LYMPH % 28.6 % (27.0-41.0); MEAN CELL VOLUME 91.2 fl (81.0-99.0); MEAN CORPUSCULAR HGB 28.7 pg (27.0-31.0); MEAN CORPUSCULAR HGB CONC 31.4 g/dl (33.0-37.0); MEAN PLATELET VOLUME 11.4 fl (9.6-12.3); MONO # 1.1 10*3/uL (0.1-1.0); MONO % 10.9 % (3.0-9.0); NEUT # 5.8 10*3/uL (2.3-7.9); NEUT % 59.8 % (47.0-73.0); RED BLOOD COUNT 3.63 10*6/uL (4.10-5.10); WHITE BLOOD COUNT 9.7 10*3/uL (4.8-10.8)
[2023-08-31 06:43] LABS: PLATELET COUNT AUTOMATED 260 10*3/uL (130-400)
[2023-08-31 06:50] LABS: TOTAL PROTEIN 7.6 gm/dL (6.0-8.0)
[2023-08-31 08:00] VITALS: BP 175/52
[2023-08-31] MEDS ORDERED: FOAM BANDAGE HEEL T ONE (09:40)
[2023-08-31] MEDS ORDERED: FOAM BANDAGE 1 EACH BANDAGE T ONE (09:40)
[2023-08-31] MEDS ORDERED: POTASSIUM CHLORIDE 20 MEQ TAB PO SCH (10:30)
[2023-08-31] MEDS ORDERED: POTASSIUM CHLORIDE 20 MEQ TAB PO ONE (10:30)
[2023-08-31] MEDS ORDERED: CHAIR CUSHION DEVICE ONE (10:50)
[2023-08-31 12:30] VITALS: BP 140/30
[2023-08-31 13:00] VITALS: BP 164/32
[2023-08-31 16:00] VITALS: BP 178/35
[2023-08-31 20:00] VITALS: BP 151/47
[2023-08-31] MEDS ORDERED: hydrALAZINE hydrochloride 50 MG TAB PO SCH (22:00)
[2023-09-01] VITALS: BP 156/50
[2023-09-01 06:18] LABS: POTASSIUM 3.3 mmol/L (3.4-5.1)
[2023-09-01 08:00] VITALS: BP 162/48
[2023-09-01] MEDS ORDERED: POTASSIUM CHLORIDE 20 MEQ TAB PO ONE (10:00)
[2023-09-01] MEDS ORDERED: FUROSEMIDE 40 MG/4 ML VIAL IV SCH (10:00)
[2023-09-01 10:45] LABS: POTASSIUM 3.2 mmol/L (3.4-5.1)
[2023-09-01] MEDS ORDERED: METOPROLOL SUCCINATE XR 50 MG TAB PO SCH (11:45)
[2023-09-01 12:00] VITALS: BP 160/44
[2023-09-01] MEDS ORDERED: hydrALAZINE hydrochloride 50 MG TAB PO SCH (14:00)
[2023-09-01 16:00] VITALS: BP 149/40
[2023-09-01 20:00] VITALS: BP 152/62
[2023-09-02] VITALS: BP 153/35
[2023-09-02 05:30] VITALS: BP 148/42
[2023-09-02 06:50] LABS: POTASSIUM 3.4 mmol/L (3.4-5.1)
[2023-09-02 08:00] VITALS: BP 159/42
[2023-09-02] MEDS ORDERED: predniSONE 10 MG TAB PO SCH (10:00)
[2023-09-02 12:00] VITALS: BP 160/32
[2023-09-02 16:00] VITALS: BP 153/56
[2023-09-02 20:00] VITALS: BP 157/30; BP 160/40
[2023-09-02] MEDS ORDERED: APIXABAN 5 MG TAB PO SCH (22:00)
[2023-09-03] VITALS: BP 162/33
[2023-09-03 05:00] VITALS: BP 162/40
[2023-09-03 06:22] LABS: POTASSIUM 3.7 mmol/L (3.4-5.1)
[2023-09-03 08:00] VITALS: BP 161/58
[2023-09-03] MEDS ORDERED: ZYVOX600 MG PO (08:31)
[2023-09-03] MEDS ORDERED: LASIX20 MG PO (08:31)
[2023-09-03] MEDS ORDERED: FUROSEMIDE 40 MG/4 ML VIAL IV SCH (10:00)
[2023-09-03 12:00] VITALS: BP 164/47
[2023-09-03 13:24] LABS: URINE CREATININE RANDOM 81.53 mg/dL
== END 2023-09-03 14:05 | DRG 291 ==
LOC: ED 04:56 → EDHOLD 06:44 → 4E 06:44 → EDHOLD 12:00 → 4E 20:26
PROVIDERS: Internal Medicine; Internal Medicine Critical Care Medicine; Internal Medicine Nephrology; ADMIT Internal Medicine; ATTEND Internal Medicine
DX: I13.0 Hypertensive heart and chronic kidney disease with heart failure and stage 1 through stage 4 chronic kidney disease, or unspecified chronic kidney disease (principal); I50.33 Acute on chronic diastolic (congestive) heart failure; J96.21 Acute and chronic respiratory failure with hypoxia; J96.22 Acute and chronic respiratory failure with hypercapnia; J44.1 Chronic obstructive pulmonary disease with (acute) exacerbation; E87.1 Hypo-osmolality and hyponatremia; I48.0 Paroxysmal atrial fibrillation; K21.00 Gastro-esophageal reflux disease with esophagitis, without bleeding; F41.1 Generalized anxiety disorder; J43.2 Centrilobular emphysema; E78.2 Mixed hyperlipidemia; Z66 Do not resuscitate; I25.10 Atherosclerotic heart disease of native coronary artery without angina pectoris; D50.9 Iron deficiency anemia, unspecified; N18.31 Chronic kidney disease, stage 3a; B95.62 Methicillin resistant Staphylococcus aureus infection as the cause of diseases classified elsewhere; R62.7 Adult failure to thrive; Z88.1 Allergy status to other antibiotic agents; Z88.8 Allergy status to other drugs, medicaments and biological substances; Z95.1 Presence of aortocoronary bypass graft; Z98.42 Cataract extraction status, left eye; Z98.41 Cataract extraction status, right eye; Z51.5 Encounter for palliative care; Z79.01 Long term (current) use of anticoagulants; Y92.89 Other specified places as the place of occurrence of the external cause; Z68.29 Body mass index [BMI] 29.0-29.9, adult

== ENCOUNTER → 2023-09-20 | Outpatient (CLI) | payer OTHER ==
[2023-09-20] VITALS (7 sets, daily range): BP systolic 139–167; BP diastolic 45–86
[~2023-09-20] MED LIST changes: +AMOXICILLIN875 MG PO; +DOCUSATE SOD100 MG PO; +FLAVOXATE HCL100 MG PO; +HYDROXYZINE HCL25 MG PO; +LASIX20 MG PO; +MILK OF MA400 MG/53 PO; +MIRTAZAPINE15 M1 PO; +SACCHAROMYCES250 MG PO; +SODIUM CHLORIDE 0.9% 100 ML IV ONE; +SODIUM CHLORIDE 0.9% 500 ML IV ONE; +SODIUM CHLORIDE 0.9% 500 ML IV SCH; +SYMB160 INH; +ZYVOX600 MG PO
== END | disposition home or self-care (01) ==
LOC: TRNFUSION 02:10
PROVIDERS: ATTEND Internal Medicine
DX: D64.9 Anemia, unspecified (principal); I25.10 Atherosclerotic heart disease of native coronary artery without angina pectoris; I11.0 Hypertensive heart disease with heart failure; I50.9 Heart failure, unspecified; J44.9 Chronic obstructive pulmonary disease, unspecified; E78.5 Hyperlipidemia, unspecified; I48.91 Unspecified atrial fibrillation; F41.9 Anxiety disorder, unspecified; Z98.41 Cataract extraction status, right eye; Z98.42 Cataract extraction status, left eye; Z98.890 Other specified postprocedural states; Z80.9 Family history of malignant neoplasm, unspecified